=== PATIENT | female | born 1995 | race African-American/Black ===

== ENCOUNTER 2018-06-22 01:17 | Emergency (ER) | payer OTHER ==
[~2018-06-22] VITALS: Ht 172.7 cm; Wt 112.7 kg
[2018-06-22 01:19] VITALS: Ht 172.7 cm; Wt 112.7 kg
[2018-06-22 01:51] LABS: HCG URINE NEGATIVE (NEGATIVE)
[2018-06-22 01:52] LABS: APPEARANCE CLEAR (CLEAR); BILIRUBIN NEGATIVE (NEGATIVE); COLOR YELLOW (YELLOW); GLUCOSE NEGATIVE (NEGATIVE); KETONE NEGATIVE (NEGATIVE); NITRITE NEGATIVE (NEGATIVE); PROTEIN NEGATIVE (NEGATIVE); UROBILINOGEN NORMAL (NORMAL)
[2018-06-22 01:53] LABS: BACTERIA NONE SEEN /hpf (NONE SEEN); EPITHELIAL CELLS 0-5 /hpf (0-5); RED CELLS - URINE 0-5 /hpf (0-5); WHITE CELLS - URINE 0-5 /hpf (0-5)
[2018-06-22 02:01] LABS: BASOPHILS 0.2 % (0-2); EOSINOPHILS 2.2 % (0-7); HEMATOCRIT 37.6 % (36.0-48.0); HEMOGLOBIN 12.8 g/dL (12-16); IMMATURE GRANULOCYTES 0.4 % (0-5); LYMPHOCYTES 42.1 % (15-50); MCH 30.6 pg (26.0-34.0); MEAN PLATELET VOLUME 9.7 fL (7.4-10.4); MONOCYTES 5.4 % (2-11); NEUTROPHILS 49.7 % (40-80); PLATELET COUNT 181 10x3/uL (130-400); RBC 4.18 10x6/uL (4.00-5.40); RDW 13.9 % (11.5-14.5)
[2018-06-22] MEDS ORDERED: FLOMAX0.4 MG PO (02:14)
[2018-06-22] MEDS ORDERED: TORADOL10 MG PO (02:14)
[2018-06-22 02:22] LABS: ALBUMIN 3.1 g/dL (3.4-5.0); ALKALINE PHOSPHATASE 32 U/L (46-116); ALT (SGPT) 29 U/L (10-68); BILIRUBIN - TOTAL 0.25 mg/dL (0.2-1.3); CALC OSMOLALITY 281 mosm/kg (275-300); CALCIUM 8.2 mg/dL (8.5-10.1); CARBON DIOXIDE 28.1 mmol/L (21.0-32.0); CHLORIDE - SERUM 107 mmol/L (98-107); CREATININE - SERUM 0.8 mg/dL (0.6-1.3); GLUCOSE 90 mg/dL (74-106); POTASSIUM - SERUM 4.6 mmol/L (3.5-5.1); PROTEIN - SERUM 6.1 g/dL (6.4-8.2); SODIUM 142 mmol/L (136-145); UREA NITROGEN 10 mg/dL (7-18); eGFR NON AFRICAN AMERICAN > 90 mL/min (90-120)
[2018-06-22 02:50] VITALS: BP 132/79
== END 2018-06-22 02:50 | disposition home or self-care (01) ==
LOC: D.ER 01:17
PROVIDERS: Emergency Medicine
DX: R10.84 Generalized abdominal pain (principal); F17.200 Nicotine dependence, unspecified, uncomplicated

== ENCOUNTER 2018-09-20 22:44 | Emergency (ER) | payer MEDICAID ==
[~2018-09-20] VITALS: Ht 172.7 cm; Wt 115.7 kg
[~2018-09-20 22:44] MED LIST: FLOMAX0.4 MG PO; TORADOL10 MG PO
[2018-09-20 23:01] VITALS: Ht 172.7 cm; Wt 115.7 kg
[2018-09-21 01:42] LABS: HCG URINE NEGATIVE (NEGATIVE)
[2018-09-21] MEDS ORDERED: HYDROCODON-ACE1 EAC2 PO (03:15)
[2018-09-21 03:24] VITALS: BP 141/71
== END 2018-09-21 03:24 | disposition home or self-care (01) ==
LOC: D.ER 22:44
PROVIDERS: Family Medicine
DX: M54.5 Low back pain (principal); M48.061 Spinal stenosis, lumbar region without neurogenic claudication; M54.32 Sciatica, left side

== ENCOUNTER 2018-10-23 00:15 | Emergency (ER) | payer MEDICAID ==
[~2018-10-23] VITALS: Ht 172.7 cm; Wt 121.8 kg
[~2018-10-23 00:15] MED LIST changes: +HYDROCODON-ACE1 EAC2 PO
[2018-10-23 00:28] VITALS: Ht 172.7 cm; Wt 121.8 kg
[2018-10-23] MEDS ORDERED: NAPROSYN500 MG PO (01:53)
[2018-10-23] MEDS ORDERED: HYDROCODON-ACE1 EAC7 PO (01:53)
[2018-10-23 02:52] VITALS: BP 130/62
== END 2018-10-23 02:52 | disposition home or self-care (01) ==
LOC: D.ER 00:15
DX: S83.91XA Sprain of unspecified site of right knee, initial encounter (principal); W18.31XA Fall on same level due to stepping on an object, initial encounter; Y93.89 Activity, other specified; Y92.89 Other specified places as the place of occurrence of the external cause

== ENCOUNTER 2019-09-30 07:12 | Emergency (ER) | payer MEDICAID ==
[~2019-09-30] VITALS: Ht 172.7 cm; Wt 140.9 kg
[~2019-09-30 07:12] MED LIST changes: +HYDROCODON-ACE1 EAC7 PO; +NAPROSYN500 MG PO
[2019-09-30 07:18] VITALS: Ht 172.7 cm; Wt 140.9 kg
[2019-09-30 07:48] LABS: BASOPHILS 0.5 % (0-2); EOSINOPHILS 4.1 % (0-7); HEMATOCRIT 41.3 % (36.0-48.0); HEMOGLOBIN 13.4 g/dL (12-16); LYMPHOCYTES 34.5 % (15-50); MCH 28.8 pg (26.0-34.0); MCHC 32.4 g/dL (31.0-37.0); MCV 88.6 fL (80.0-100.0); MEAN PLATELET VOLUME 10.2 fL (7.4-10.4); MONOCYTES 8.3 % (2-11); NEUTROPHILS 52.6 % (40-80); PLATELET COUNT 239 10x3/uL (130-400); RBC 4.66 10x6/uL (4.00-5.40); RDW 13.5 % (11.5-14.5); WBC 4.4 10x3/uL (4.8-10.8)
[2019-09-30 08:00] LABS: HCG URINE NEGATIVE (NEGATIVE)
[2019-09-30 08:02] LABS: BILIRUBIN NEGATIVE (NEGATIVE); GLUCOSE NEGATIVE (NEGATIVE); KETONE NEGATIVE (NEGATIVE); NITRITE NEGATIVE (NEGATIVE); SPECIFIC GRAVITY 1.015 (1.005-1.020); UROBILINOGEN NORMAL (NORMAL)
[2019-09-30 08:20] LABS: CALC OSMOLALITY 272 mosm/kg (275-300); CALCIUM 8.4 mg/dL (8.5-10.1); CARBON DIOXIDE 26.6 mmol/L (21.0-32.0); CHLORIDE - SERUM 104 mmol/L (98-107); CREATININE - SERUM 0.9 mg/dL (0.6-1.3); GLUCOSE 93 mg/dL (74-106); POTASSIUM - SERUM 4.1 mmol/L (3.5-5.1); SODIUM 137 mmol/L (136-145); UREA NITROGEN 9 mg/dL (7-18); eGFR NON AFRICAN AMERICAN 81 mL/min (90-120)
[2019-09-30 08:28] LABS: ALBUMIN 3.7 g/dL (3.4-5.0); ALKALINE PHOSPHATASE 67 U/L (30-120); ALT (SGPT) 18 U/L (10-68); AMYLASE - SERUM 45 U/L (25-115); BILIRUBIN - TOTAL 0.49 mg/dL (0.2-1.3); LIPASE 65 U/L (73-393); PROTEIN - SERUM 7.3 g/dL (6.4-8.2)
[2019-09-30 08:29] LABS: TROPONIN-I < 0.017 ng/mL (0.000-0.060)
[2019-09-30 09:53] VITALS: BP 142/73
== END 2019-09-30 09:53 | disposition home or self-care (01) ==
LOC: D.ER 07:12
PROVIDERS: Family Medicine
DX: R11.2 Nausea with vomiting, unspecified (principal)

== ENCOUNTER 2019-10-09 12:22 | Emergency (ER) | payer MEDICAID ==
[~2019-10-09] VITALS: Ht 172.7 cm; Wt 136.4 kg
[2019-10-09 12:28] VITALS: Ht 172.7 cm; Wt 136.4 kg
[2019-10-09 12:47] LABS: BASOPHILS 0 % (0-2); HEMATOCRIT 38.4 % (36.0-48.0); HEMOGLOBIN 12.6 g/dL (12-16); LYMPHOCYTES 38.6 % (15-50); MCH 28.8 pg (26.0-34.0); MCHC 32.8 g/dL (31.0-37.0); MCV 87.7 fL (80.0-100.0); MEAN PLATELET VOLUME 9.7 fL (7.4-10.4); MONOCYTES 5.2 % (2-11); NEUTROPHILS 52.2 % (40-80); PLATELET COUNT 226 10x3/uL (130-400); RBC 4.38 10x6/uL (4.00-5.40); RDW 13.5 % (11.5-14.5); WBC 3.3 10x3/uL (4.8-10.8)
[2019-10-09 13:01] LABS: BILIRUBIN NEGATIVE (NEGATIVE); GLUCOSE NEGATIVE (NEGATIVE); KETONE NEGATIVE (NEGATIVE); NITRITE NEGATIVE (NEGATIVE); UROBILINOGEN NORMAL (NORMAL)
[2019-10-09 13:11] LABS: CALC OSMOLALITY 275 mosm/kg (275-300); CALCIUM 8.7 mg/dL (8.5-10.1); CARBON DIOXIDE 26.1 mmol/L (21.0-32.0); CHLORIDE - SERUM 106 mmol/L (98-107); CREATININE - SERUM 0.9 mg/dL (0.6-1.3); GLUCOSE 85 mg/dL (74-106); SODIUM 139 mmol/L (136-145); UREA NITROGEN 11 mg/dL (7-18); eGFR NON AFRICAN AMERICAN 81 mL/min (90-120)
[2019-10-09 13:13] LABS: HCG SERUM NEGATIVE (NEGATIVE)
[2019-10-09 13:18] LABS: ALBUMIN 3.6 g/dL (3.4-5.0); ALKALINE PHOSPHATASE 65 U/L (30-120); ALT (SGPT) 20 U/L (10-68); AMYLASE - SERUM 35 U/L (25-115); BILIRUBIN - TOTAL 0.39 mg/dL (0.2-1.3); LIPASE 46 U/L (73-393); PROTEIN - SERUM 7.1 g/dL (6.4-8.2)
[2019-10-09 15:22] VITALS: BP 128/76
== END 2019-10-09 15:23 | disposition home or self-care (01) ==
LOC: D.ER 12:22
PROVIDERS: Family Medicine
DX: R10.13 Epigastric pain (principal); R11.2 Nausea with vomiting, unspecified